=== PATIENT | male | born 1960 | race African-American/Black ===

== ENCOUNTER → 2018-04-02 | Outpatient (CLI) | payer BC | END | disposition home or self-care (01) | LOC: KCIC MRI 07:49 | DX: S43.492A Other sprain of left shoulder joint, initial encounter (principal); X58.XXXA Exposure to other specified factors, initial encounter; Y93.89 Activity, other specified; Y92.89 Other specified places as the place of occurrence of the external cause; Y99.8 Other external cause status | CPT/HCPCS: 73221 ==

== ENCOUNTER 2019-05-26 03:16 | Emergency (ER) | payer BC ==
[~2019-05-26] VITALS: Ht 170.2 cm; Wt 89.4 kg
[~2019-05-26 03:16] MED LIST: ASPI325T8 PO; ATORVASTATIN CA80 MG PO; HYDR-2765 PO; LISI-338 PO; METF500T25 PO; METO25TA4 PO; NITR0.4T SL; OMEG300C PO
--- NOTE | 2019-05-26 05:34 | PHYS DOC ---
Past Medical History Past Medical History: Diabetes-Type II, High Cholesterol, Heart Disease, Hypertension, Other Additional Past Medical Histor: Chronic back pain, Colon tumor (YONATHAN MCCARTNEY DO) Past Surgical History: Coronary Bypass Surgery, Other Additional Past Surgical Histo: Back, bypass, colon ressection, achellis tendon (YONATHAN MCCARTNEY DO) Smoking: Quit Greater Than 1 Year Alcohol Use: Heavy Drug Use: Marijuana (YONATHAN MCCARTNEY DO) Adult General Chief Complaint Chief Complaint: ABDOMINAL PAIN HPI HPI Mr. Wilson is a pleasant 58yo AAM w/ PMH significant for colon tumor and resection, HTN, HLD, and DM presents with LLQ pain. The pain has been present for over a month but recently increased in severity "over the last couple of days" and is sharp, intermittent, non-radiating, and rated 8-9/10. Movement makes it worse. Last colonoscopy was performed July 2018 w/ no concerns. Denies: diarrhea, constipation, or hematochezia. (YONATHAN MCCARTNEY DO) Review of Systems Review of Systems Constitutional: Denies fever or chills Eyes: Denies redness or eye pain HENT: Denies nasal congestion or sore throat Respiratory: Denies cough or shortness of breath Cardiovascular: Denies chest pain or palpitations GI: Reports LLQ abdominal pain. Denies nausea, vomiting, diarrhea, constipation, or hematochezia. : Denies dysuria or hematuria Musculoskeletal: Denies back pain or joint pain Neurologic: Denies headache, focal weakness or sensory changes Complete systems were reviewed and found to be within normal limits, except as documented in this note. (YONATHAN MCCARTNEY DO) Current Medications Current Medications Current Medications Medications (Trade) Dose Ordered Sig/Sarah Start Time Stop Time Status Last Admin Dose Admin Fentanyl Citrate (Fentanyl 2ml Vial) 50 mcg 1X ONCE 05/26/19 06:00 05/26/19 06:01 DC 05/26/19 05:38 50 MCG Info (CONTRAST GIVEN -- Rx MONITORING) 1 each PRN DAILY PRN 05/26/19 06:45 05/28/19 06:44 Iohexol (Omnipaque 300 Mg/ml) 75 ml 1X ONCE 05/26/19 07:00 05/26/19 07:01 DC 05/26/19 06:34 75 ML Ondansetron HCl (Zofran) 4 mg 1X ONCE 05/26/19 06:00 05/26/19 06:01 DC 05/26/19 05:38 4 MG Sodium Chloride 1,000 ml @ 1,000 mls/hr 1X ONCE 05/26/19 06:00 05/26/19 06:59 DC 05/26/19 05:38 1,000 MLS/HR (GISELLE SCHMID MD) Allergies Allergies Allergies Coded Allergies Type Severity Reaction Last Updated Verified [place] And Derivatives Allergy Severe FACIAL SWELLING 08/19/15 Yes apple Allergy Severe FACIAL SWELLING 08/19/15 Yes banana Allergy Severe FACIAL SWELLING 08/19/15 Yes grapefruit Allergy Severe FACIAL SWELLING 08/19/15 Yes orange Allergy Severe FACIAL SWELLING 08/19/15 Yes pineapple Allergy Severe FACIAL SWELLING 08/19/15 Yes shellfish derived Allergy Severe Hives 05/20/14 Yes (GISELLE SCHMID MD) Physical Exam Physical Exam Constitutional: pleasant, conversational, obese, well developed, well nourished, no acute distress, non-toxic appearance HENT: Normocephalic, atraumatic, oropharynx moist Eyes: PERRL, EOMI, conjunctiva normal, no discharge Neck: Normal range of motion, no tenderness, supple, no cervical or supracla vicular LAD Cardiovascular: Heart rate normal, regular rhythm w/o gallops, rubs, or murmurs Lungs & Thorax: Bilateral breath sounds clear to auscultation, no wheezing Abdomen: Soft, LLQ tender to palpation, non-distended, normoactive BS x4 quadrants Skin: Warm, dry, no erythema, no rash Back: No tenderness, no CVA tenderness Extremities: No tenderness, ROM intact, no edema Neurologic: Alert and oriented X 3, normal motor function, normal sensory f unction, no focal deficits noted Psychologic: Affect normal, judgement normal, mood normal (YONATHAN MCCARTNEY DO) Current Patient Data Vital Signs Vital Signs Date Time Temp Pulse Resp B/P (MAP) Pulse Ox O2 Delivery O2 Flow Rate FiO2 05/26/19 05:38 95 Room Air 05/26/19 04:40 97.7 65 18 142/74 (96) 97.7 (GISELLE SCHMID MD) Lab Values Laboratory Tests Test 05/26/19 05:15 05/26/19 06:45 White Blood Count 4.4 x10^3/uL (4.0-11.0) Red Blood Count 4.66 x10^6/uL (4.30-5.70) Hemoglobin 14.1 g/dL (13.0-17.5) Hematocrit 42.3 % (39.0-53.0) Mean Corpuscular Volume 91 fL (79-100) Mean Corpuscular Hemoglobin 30 pg (25-35) Mean Corpuscular Hemoglobin Concent 33 g/dL (31-37) Red Cell Distribution Width 14.5 % (11.5-14.5) Platelet Count 257 x10^3/uL (140-400) Neutrophils (%) (Auto) 46 % (31-73) Lymphocytes (%) (Auto) 37 % (24-48) Monocytes (%) (Auto) 14 % (0-9) H Eosinophils (%) (Auto) 2 % (0-3) Basophils (%) (Auto) 1 % (0-3) Neutrophils # (Auto) 2.0 x10^3/uL (1.8-7.7) Lymphocytes # (Auto) 1.6 x10^3/uL (1.0-4.8) Monocytes # (Auto) 0.6 x10^3/uL (0.0-1.1) Eosinophils # (Auto) 0.1 x10^3/uL (0.0-0.7) Basophils # (Auto) 0.0 x10^3/uL (0.0-0.2) Prothrombin Time 12.6 SEC (11.7-14.0) Prothrombin Time INR 1.0 (0.8-1.1) Activated Partial Thromboplast Time 30 SEC (24-38) Sodium Level 140 mmol/L (136-145) Potassium Level 4.5 mmol/L (3.5-5.1) Chloride Level 103 mmol/L (98-107) Carbon Dioxide Level 27 mmol/L (21-32) Anion Gap 10 (6-14) Blood Urea Nitrogen 17 mg/dL (8-26) Creatinine 0.9 mg/dL (0.7-1.3) Estimated GFR (Cockcroft-Gault) 104.2 BUN/Creatinine Ratio 19 (6-20) Glucose Level 93 mg/dL (70-99) Lactic Acid Level 1.1 mmol/L (0.4-2.0) Calcium Level 9.6 mg/dL (8.5-10.1) Total Bilirubin 1.0 mg/dL (0.2-1.0) Aspartate Amino Transferase (AST) 36 U/L (15-37) Alanine Aminotransferase (ALT) 33 U/L (16-63) Alkaline Phosphatase 75 U/L (46-116) Creatine Kinase 439 U/L (39-308) H Creatine Kinase MB (Mass) 3.0 ng/mL (0.0-3.6) Creatine Kinase MB Relative Index 0.7 % (0-4) Troponin I Quantitative < 0.017 ng/mL (0.000-0.055) Total Protein 8.3 g/dL (6.4-8.2) H Albumin 4.2 g/dL (3.4-5.0) Albumin/Globulin Ratio 1.0 (1.0-1.7) Lipase 133 U/L (73-393) Urine Collection Type Void Urine Color Yellow Urine Clarity Clear Urine pH 6.0 Urine Specific Wirtz 1.020 Urine Protein Negative mg/dL (NEG-TRACE) Urine Glucose (UA) Negative mg/dL (NEG) Urine Ketones (Stick) Negative mg/dL (NEG) Urine Blood Negative (NEG) Urine Nitrite Negative (NEG) Urine Bilirubin Negative (NEG) Urine Urobilinogen Dipstick 1.0 mg/dL (0.2 mg/dL) Urine Leukocyte Esterase Negative (NEG) Urine RBC Rare /HPF (0-2) Urine WBC Occ /HPF (0-4) Urine Squamous Epithelial Cells Occ /LPF Urine Bacteria 0 /HPF (0-FEW) Urine Mucus Slight /LPF Laboratory Tests 05/26/19 05:15 Laboratory Tests 05/26/19 05:15 (GISELLE SCHMID MD) Lab Values Laboratory Tests Test 05/26/19 05:15 White Blood Count 4.4 x10^3/uL (4.0-11.0) Red Blood Count 4.66 x10^6/uL (4.30-5.70) Hemoglobin 14.1 g/dL (13.0-17.5) Hematocrit 42.3 % (39.0-53.0) Mean Corpuscular Volume 91 fL (79-100) Mean Corpuscular Hemoglobin 30 pg (25-35) Mean Corpuscular Hemoglobin Concent 33 g/dL (31-37) Red Cell Distribution Width 14.5 % (11.5-14.5) Platelet Count 257 x10^3/uL (140-400) Neutrophils (%) (Auto) 46 % (31-73) Lymphocytes (%) (Auto) 37 % (24-48) Monocytes (%) (Auto) 14 % (0-9) H Eosinophils (%) (Auto) 2 % (0-3) Basophils (%) (Auto) 1 % (0-3) Neutrophils # (Auto) 2.0 x10^3/uL (1.8-7.7) Lymphocytes # (Auto) 1.6 x10^3/uL (1.0-4.8) Monocytes # (Auto) 0.6 x10^3/uL (0.0-1.1) Eosinophils # (Auto) 0.1 x10^3/uL (0.0-0.7) Basophils # (Auto) 0.0 x10^3/uL (0.0-0.2) Prothrombin Time 12.6 SEC (11.7-14.0) Prothrombin Time INR 1.0 (0.8-1.1) Activated Partial Thromboplast Time 30 SEC (24-38) Sodium Level 140 mmol/L (136-145) Potassium Level 4.5 mmol/L (3.5-5.1) Chloride Level 103 mmol/L (98-107) Carbon Dioxide Level 27 mmol/L (21-32) Anion Gap 10 (6-14) Blood Urea Nitrogen 17 mg/dL (8-26) Creatinine 0.9 mg/dL (0.7-1.3) Estimated GFR (Cockcroft-Gault) 104.2 BUN/Creatinine Ratio 19 (6-20) Glucose Level 93 mg/dL (70-99) Lactic Acid Level 1.1 mmol/L (0.4-2.0) Calcium Level 9.6 mg/dL (8.5-10.1) Total Bilirubin 1.0 mg/dL (0.2-1.0) Aspartate Amino Transferase (AST) 36 U/L (15-37) Alanine Aminotransferase (ALT) 33 U/L (16-63) Alkaline Phosphatase 75 U/L (46-116) Creatine Kinase 439 U/L (39-308) H Creatine Kinase MB (Mass) 3.0 ng/mL (0.0-3.6) Creatine Kinase MB Relative Index 0.7 % (0-4) Troponin I Quantitative < 0.017 ng/mL (0.000-0.055) Total Protein 8.3 g/dL (6.4-8.2) H Albumin 4.2 g/dL (3.4-5.0) Albumin/Globulin Ratio 1.0 (1.0-1.7) Lipase 133 U/L (73-393) Laboratory Tests 05/26/19 05:15 Laboratory Tests 05/26/19 05:15 (YONATHAN MCCARTNEY DO) EKG EKG EKG obtained @ 05:44 and read @ 05:47. No ST-elevation noted.[] (YONATHAN MCCARTNEY DO) Radiology/Procedures Radiology/Procedures [] (YONATHAN MCCARTNEY DO) Course & Med Decision Making Course & Med Decision Making Patient presented with LLQ pain. CT abdomen pending. Labs pending. Fentanyl and Zofran administered. Sign-out provided to Dr. Schmid for final evaluation and disposition. Discussed current findings and plan with patient and family, who acknowledge understanding and agreement. [] (YONATHAN MCCARTNEY DO) Course & Med Decision Making 58-year-old male presenting to the emergency department today with left lower quadrant abdominal pain. Patient was seen and evaluated prior to my examination and initial plan had already been set forth. Patient received a CT abdomen pelvis along with an EKG and blood work. Patient was signed out to me at 6 AM with plans to follow-up on imaging and blood work and to discharge if unremarkable. Patient's CT shows no acute abnormalities. CBC unremarkable. Chemistry panel shows an elevated CK which is a very nonspecific test. CK-MB is within normal limits and troponin is negative. Patient's lactic acid is within normal limits. Coags normal. Urinalysis normal. EKG was initially reviewed by Dr. Mccartney. I also looked at the EKG which shows sinus rhythm with a regular rate. ST segments are congruent. Nonspecific T-wave inversions. Not suggestive of acute coronary syndrome. Patient's pain is not in his chest. His pain is in his lower abdomen. On evaluation the patient at approximate 7:30 the patient is feeling better. He is comfortable and is not in distress. His abdomen is soft and nontender. I discussed his results including the enlarged lymph nodes seen on CAT scan. He will need to follow-up with his doctor for this. Otherwise I will give him a few pain medications to take at home if he needs that he is to return if his pain worsens or if he is concerned for any reason. He will need to follow-up with his doctor in 1-2 days for repeat abdominal exam. [id number] discharge instructions and return precautions given. (GISELLE SCHMID MD) Dragon Disclaimer Dragon Disclaimer This electronic medical record was generated, in whole or in part, using a voice recognition dictation system. (YONATHAN MCCARTNEY DO) Departure Departure Impression: Primary Impression: Abdominal pain Disposition: HOME, SELF-CARE Condition: STABLE Referrals: KAYLA FOY (PCP) Patient Instructions: Abdominal Pain (Nonspecific) Additional Instructions: Thank you for allowing us to participate in your care today. Return to the emergency department you have any new or worsening symptoms, or if you are concerned for any reason. Return to emergency department if you have any new or concerning symptoms including but not limited to fever, chills, nausea, vomiting, intractable pain, any new rashes, chest pain, shortness of air, uncontrolled bleeding, difficulty breathing, and/or vision loss. Follow up with your primary care physician within 1-2 days. Call your Primary Doctor tomorrow and inform them of your visit today. If you do not have a primary care provider we are happy to provide you with a list of our primary care providers contact information. This condition should be evaluated by your primary care physician and any recommended consulting services for continued management within 2 days after discharge. If at any time, you are having difficulty getting into your primary care doctor or a specialist, return to the emergency department. Scripts Hydrocodone Bit/Acetaminophen (HYDROCODONE-APAP 5-325 ) 1 Tab Tablet 1 TAB PO PRN Q8HRS PRN for sev, #8 TAB 0 Refills Prov: GISELLE SCHMID MD 05/26/19 Problem Qualifiers Primary Impression: Abdominal pain Abdominal location: left lower quadrant Qualified Codes: R10.32 - Left lower quadrant pain YONATHAN MCCARTNEY DO May 26, 2019 05:34 GISELLE SCHMID MD May 26, 2019 07:38
[2019-05-26 05:37] LABS: BASO % 1 % (0-3); EOS # 0.1 x10^3/uL (0.0-0.7); EOS % 2 % (0-3); HEMATOCRIT 42.3 % (39.0-53.0); HEMOGLOBIN 14.1 g/dL (13.0-17.5); LYMPH # 1.6 x10^3/uL (1.0-4.8); LYMPH % 37 % (24-48); MEAN CORPUSCULAR HEMOGLOBIN 30 pg (25-35); MEAN CORPUSCULAR HGB CONC 33 g/dL (31-37); MEAN CORPUSCULAR VOLUME 91 fL (79-100); MONO # 0.6 x10^3/uL (0.0-1.1); MONO % 14 % (0-9); NEUT % 46 % (31-73); PLATELET COUNT 257 x10^3/uL (140-400); RED BLOOD COUNT 4.66 x10^6/uL (4.30-5.70); RED CELL DISTRIBUTION WIDTH 14.5 % (11.5-14.5); WHITE BLOOD COUNT 4.4 x10^3/uL (4.0-11.0)
[2019-05-26 05:50] LABS: CALCIUM 9.6 mg/dL (8.5-10.1); CREATININE 0.9 mg/dL (0.7-1.3); GFR 104.2; POTASSIUM 4.5 mmol/L (3.5-5.1)
[2019-05-26 05:51] LABS: PROTHROMBIN TIME PATIENT 12.6 SEC (11.7-14.0)
[2019-05-26 05:56] LABS: ALBUMIN 4.2 g/dL (3.4-5.0); TOTAL PROTEIN 8.3 g/dL (6.4-8.2)
[2019-05-26] MEDS ORDERED: IV NORMAL SALINE 1000ML BAG 1,000 ML IV ONE (06:00)
[2019-05-26] MEDS ORDERED: ONDANSETRON PF 4 MG/2 ML VIAL. IV ONE (06:00)
[2019-05-26] MEDS ORDERED: fentaNYL PF VIAL 100 MCG/2 ML VIAL IV ONE (06:00)
--- NOTE | 2019-05-26 06:26 | EKG ---
[facility] [address] [place] [address] Test Date: 2019-05-26 Test Time: 05:44:32 Pat Name: MANNY RAYMUNDO Department: Room: Gender: M Consulting Systems Engineer: : 1960 Requested By: YONATHAN MCCARTNEY Order Number: [id number] Reading MD: Measurements Intervals [place] Rate: 60 P: 41 KS: 210 QRS: 52 QRSD: 96 T: 76 QT: 420 QTc: 424 Interpretive Statements SINUS RHYTHM NON SPECIFIC ST-T ABNORMALITY (ELEVATION) OTHERWISE NORMAL ECG No previous ECG available for comparison
[2019-05-26] MEDS ORDERED: CONTRAST GIVEN. MC PRN (06:45)
[2019-05-26 06:59] LABS: BILIRUBIN,URINE NEGATIVE (NEG); CLARITY,URINE CLEAR; COLOR,URINE YELLOW; NITRITE,URINE NEGATIVE (NEG); PROTEIN,URINE NEGATIVE (NEG-TRACE)
[2019-05-26] MEDS ORDERED: IOHEXOL 300 MG/ML 100ML VIAL. IV ONE (07:00)
--- NOTE | 2019-05-26 07:02 | RAD ---
INDICATION: Left lower quadrant pain with history of colonic resection COMPARISON: None. TECHNIQUE: Axial CT images obtained through the abdomen and pelvis with contrast. One or more of the following individualized dose reduction techniques were utilized for this examination: 1. Automated exposure control; 2. Adjustment of the mA and/or kV according to patient size; 3. Use of iterative reconstruction technique. FINDINGS: Partial visualization of coronary artery calcific atherosclerosis. Moderate to severe calcific atherosclerosis. Fat-containing inguinal hernias. Liver appears mildly low density. Nonspecific but mild fatty infiltration can have this appearance. No peripancreatic fluid collection. Adjacent to the liver and pancreas there is an enlarged lymph node measuring approximately 19 x 16 mm. Spleen is not enlarged. Urinary bladder is somewhat distended at time of exam. No hydronephrosis. Right renal cystic lesion. Degenerative changes the spine with multilevel central canal and neural foraminal stenosis. Colonic diverticulosis. No evidence of periappendiceal inflammation. No dilated loops of bowel to suggest obstruction. Degenerative changes the bilateral hips. Multilevel central canal and neural foraminal stenosis. Multiple disc protrusions. IMPRESSION: 1. No evidence of bowel obstruction or appendicitis. 2. Colonic diverticulosis. 3. Calcific atherosclerosis. 4. Enlarged lymph node in the upper abdomen adjacent to the pancreas and liver. Electronically signed by: Tommy Vega MD (05/26/2019 6:59 AM) [id number]
[2019-05-26 07:05] LABS: BACTERIA,URINE 0 /HPF (0-FEW); RBC,URINE RARE /HPF (0-2); SQUAMOUS EPITHELIAL CELL,UR OCC /LPF; WBC,URINE OCC /HPF (0-4)
[2019-05-26] MEDS ORDERED: HYDR-2761 PO (07:38)
[2019-05-26 07:50] VITALS: BP 128/81
== END 2019-05-26 08:11 | disposition home or self-care (01) ==
LOC: ER 03:16
DX: R10.32 Left lower quadrant pain (principal); I10 Essential (primary) hypertension; E78.5 Hyperlipidemia, unspecified; E11.9 Type 2 diabetes mellitus without complications; E78.00 Pure hypercholesterolemia, unspecified; I11.9 Hypertensive heart disease without heart failure; G89.29 Other chronic pain; M54.89 Other dorsalgia; F10.20 Alcohol dependence, uncomplicated; Z95.1 Presence of aortocoronary bypass graft; Z87.891 Personal history of nicotine dependence; Z91.013 Allergy to seafood; Z91.018 Allergy to other foods; Y90.9 Presence of alcohol in blood, level not specified
CPT/HCPCS: 36415; 74177; 80053; 81001; 82553; 83605; 83690; 84484; 85025; 85610; 85730; 93005; 96374; 96375; 99285; J2405; J3010; J7030; Q9967

== ENCOUNTER → 2019-06-24 | Outpatient (CLI) | payer BC ==
[2019-05-26 07:50] VITALS: BP 128/81
[~2019-06-24] MED LIST changes: +GADOTERATE 7.5 MMOL/15ML VIAL. IVP ONE; +HYDR-2761 PO
--- NOTE | 2019-06-24 12:47 | KCIC ---
BRAIN WO/W CONTRAST History: Seizures. Technique: Multiplanar, multi sequential pre and postcontrast MR imaging was performed of the brain. Contrast: 15 mL Dotarem. Comparison: December 12, 2012 Findings: No acute infarct. No intracranial hemorrhage. No mass effect. No hydrocephalus. Extra-axial spaces are unremarkable. No pathologic enhancement. Symmetric bilateral hippocampal formations. No abnormal signal or volume loss. Chronic right caudate body lacunar infarct. Imaged orbits are unremarkable. Right maxillary sinus mucosal retention cyst or polyp. Minimal scattered paranasal sinus mucosal thickening. Mastoid air cells are clear. Impression: 1. No acute intracranial abnormality. 2. Chronic right caudate lacunar infarct. Electronically signed by: Daniel Olsen DO (06/24/2019 12:44 PM) [facility]
--- NOTE | 2019-06-24 18:03 | KCIC ---
Bilateral 3 view knee HISTORY: Bilateral chronic knee pain, left greater than right. Right knee No evidence of an acute fracture. No bone destruction. Joint compartments are maintained. Vascular calcification is identified. Left knee: Minimal narrowing of the medial joint compartment. No acute fracture or aggressive bone destruction. Vascular calcification is seen. Surgical clips are identified. IMPRESSION: No acute radiographic findings. Electronically signed by: Franko Newman MD (06/24/2019 6:00 PM) [facility]
== END | disposition home or self-care (01) ==
LOC: KCIC MRI 10:44
PROVIDERS: ATTEND Psychiatry & Neurology Neurology with Special Qualifications in Child Neurology
DX: I63.81 Other cerebral infarction due to occlusion or stenosis of small artery (principal); R56.9 Unspecified convulsions; M25.562 Pain in left knee; M25.561 Pain in right knee
CPT/HCPCS: 70553; 73562; A9575

== ENCOUNTER → 2019-07-02 | Outpatient (CLI) | payer BC ==
[~2019-07-02] MED LIST changes: -GADOTERATE 7.5 MMOL/15ML VIAL. IVP ONE; -NITR0.4T SL; +NITR0.4T24 SL
--- NOTE | 2019-07-02 17:28 | EEG ---
DATE OF SERVICE: 07/02/2019 OBJECTIVE: The patient is a 58-year-old male with new seizure. DESCRIPTION: This is a digital study. Electrodes are placed according to international 10-20 system. Bipolar and referential montages are available. Activation procedures typically include hyperventilation and intermittent photic stimulation. INTERPRETATION: The waking background consists of 9-10 Hz, 50-100 microvolt activity, symmetrically distributed over parietooccipital regions and reactive to eye opening. Hyperventilation and intermittent photic stimulation are noncontributory. Stage 2 sleep is achieved with normal electroencephalogram patterns. All computer-identified abnormalities are reviewed and none are actually abnormal. IMPRESSION: This electroencephalogram with the patient awake and asleep is within normal limits. There is no focal, paroxysmal, or epileptiform activity. Thank you for letting us help with the patient's care. MONROE SHARMA MD DR: PABLO/jenifer JOB#: [id number] / [id number]
== END | disposition home or self-care (01) ==
LOC: RT 10:10
PROVIDERS: ATTEND Psychiatry & Neurology Neurology with Special Qualifications in Child Neurology
DX: R56.9 Unspecified convulsions (principal)
CPT/HCPCS: 95816

== ENCOUNTER → 2019-10-07 | Outpatient (CLI) | payer BC ==
--- NOTE | 2019-10-07 09:33 | RAD ---
EXAM: Abdomen sonogram. HISTORY: Cholelithiasis. Pain. TECHNIQUE: Sonographic imaging of the abdomen was performed. COMPARISON: 05/26/2019. FINDINGS: The liver is normal in size. No focal hepatic lesion is seen. The common bile duct is normal in caliber. The gallbladder is unremarkable. The kidneys are normal in size. Left kidney is partially obscured. There is a 2.2 cm right renal cyst with suspected internal septation. The pancreas, spleen and inferior vena cava are partially obscured. There is aortic atherosclerosis. IMPRESSION: 1. Sonographically unremarkable gallbladder. Specifically, no cholelithiasis or cholecystitis is seen. 2. 2.2 cm complex right renal cyst with internal septation. Sonographic follow-up can be performed to confirm stability. Electronically signed by: Liliana Watts MD (10/07/2019 9:30 AM) [facility]
== END | disposition home or self-care (01) ==
LOC: US 06:28
PROVIDERS: ATTEND Family Medicine
DX: N28.1 Cyst of kidney, acquired (principal); K80.20 Calculus of gallbladder without cholecystitis without obstruction; I70.0 Atherosclerosis of aorta
CPT/HCPCS: 76700

== ENCOUNTER → 2019-12-10 | Outpatient (CLI) | payer BC ==
--- NOTE | 2019-12-12 08:20 | KCIC ---
EXAM: Lumbar spine MRI without contrast. HISTORY: Radiculopathy. TECHNIQUE: Multiplanar, multisequence magnetic resonance imaging of the lumbar spine was performed without contrast. COMPARISON: None. FINDINGS: There is minimal S-shaped lumbar scoliosis. There is minimal grade 1 anterolisthesis of L5 on S1. There is degenerative endplate remodeling with disc space narrowing and disc desiccation at L3-L4 and L4-L5. There are postoperative changes at these levels, described in detail below. There are few osseous hemangiomas. There is no suspicious osseous lesion. There is no fracture. There is a small simple cyst within the lower pole of the right kidney. The conus terminates at L1. At L1-L2, there is no stenosis. At L2-L3, there is a disc bulge and endplate remodeling. There is no stenosis. At L3-L4, there is a broad-based posterior central disc protrusion with minimal superior and inferior extrusion. There are also broad-based left greater than right foraminal to extra foraminal disc protrusions superimposed on a disc bulge and endplate remodeling. There is mild bilateral facet arthropathy. There are partial laminectomy changes. There is moderate left greater than right foraminal stenosis with abutment of the exiting L3 nerve roots. There is moderate central canal stenosis. At L4-L5, there is extruded disc material or scar/granulation tissue along the inferior left paracentral and lateral recess disc margins measuring approximately 9 mm inferior to the disc space and 6 mm transversely and 4 mm anteroposteriorly. This is superimposed on a broad-based left paracentral to extra foraminal disc protrusion and osteophyte complex and diffuse disc bulge and endplate remodeling. There are partial laminectomy changes. There is mild bilateral foraminal stenosis with abutment of the exiting L4 nerve roots. There is effacement of the left lateral recess and deviation of the traversing left L5 nerve root with mild central canal stenosis. At L5-S1, there is mild bilateral facet arthropathy. There is mild central canal stenosis. IMPRESSION: 1. L4-L5: Suspected left paracentral to left lateral recess inferior disc extrusion or scar/granulation tissue superimposed on a broad-based disc protrusion and osteophyte complex, contributing to effacement of the left lateral recess and deviation of the traversing left L5 nerve root and mild central canal stenosis. There is also mild bilateral foraminal stenosis with abutment of the exiting L4 nerve roots at this level. There are partial laminectomy changes at this level. 2. L3-L4: Degenerative changes resulting in moderate left greater than right foraminal stenosis and abutment the exiting L3 nerve roots and moderate central canal stenosis. There are partial laminectomy changes at this level. 3. Degenerative change at the remainder of the lumbar levels, described in detail above. Electronically signed by: Liliana Watts MD (12/12/2019 8:17 AM) [id number]
== END | disposition home or self-care (01) ==
LOC: KCIC MRI 15:00
PROVIDERS: ATTEND Orthopaedic Surgery
DX: M47.26 Other spondylosis with radiculopathy, lumbar region (principal); M51.16 Intervertebral disc disorders with radiculopathy, lumbar region; M48.07 Spinal stenosis, lumbosacral region; M12.88 Other specific arthropathies, not elsewhere classified, other specified site; M41.86 Other forms of scoliosis, lumbar region; D18.09 Hemangioma of other sites; N28.1 Cyst of kidney, acquired
CPT/HCPCS: 72148

== ENCOUNTER → 2019-12-30 | Outpatient (CLI) | payer BC ==
[~2019-12-30] MED LIST changes: +CONTRAST GIVEN. MC PRN; +IOHEXOL 240 MG/ML 50ML VIAL. PO ONE; +IOHEXOL 300 MG/ML 100ML VIAL. IV ONE
[2019-12-30 08:34] LABS: CREATININE 0.9 mg/dL (0.7-1.3); GFR 103.8
--- NOTE | 2019-12-30 14:09 | RAD ---
CT scan of the abdomen and pelvis with contrast 12/30/2019 CLINICAL HISTORY: History of abdominal lymphadenopathy. TECHNIQUE: After the oral and intravenous administration of contrast, contiguous, 5 mm axial sections were obtained through the abdomen and pelvis. 75 cc of Omnipaque 300 were administered intravenously during this examination. One or more of the following individualized dose reduction techniques were utilized for this study: 1. Automated exposure control. 2. Adjustment of the mA and/or kV according to patient size. 3. Use of iterative reconstruction technique. FINDINGS: Comparison study is dated 05/26/2019. Images through the lung bases demonstrate minimal dependent subsegmental atelectasis bilaterally. A 1.7 cm bulla/bleb is seen within the left lower lobe, unchanged. A 4 mm calcified granuloma is seen within the right lower lobe, unchanged. The liver parenchyma has a decreased attenuation consistent with fatty infiltration. The spleen, pancreas, adrenal glands and left kidney are within normal limits. A 2.7 cm rounded low-attenuation lesion is seen involving the lower pole of the right kidney. This likely represents a cyst. It has not significantly changed. No further imaging workup is recommended. Atherosclerotic calcification of the abdominal aorta and its branches is noted. The abdominal aorta tapers normally. The gallbladder slightly contracted. No free fluid or free air is within the abdomen. There is no evidence of bowel obstruction. The appendix is well-visualized and is within normal limits. An 1.9 cm lymph node is seen between the liver and pancreas which is unchanged from the previous examination. No retroperitoneal lymphadenopathy is seen. Images through the pelvis demonstrate the urinary bladder distended with urine. Calcifications are seen within the pelvis consistent with phleboliths. No free fluid is seen. No pelvic or inguinal lymphadenopathy is seen. Very mild S-shaped curvature of the cervical spine is seen. Degenerative changes are seen involving lower thoracic and mid and lower lumbar spine along with both hips. IMPRESSION: Stable CT appearance of the 1.9 cm lymph node between the liver and pancreas. No acute abnormality is seen. Electronically signed by: Louie Read MD (12/30/2019 2:06 PM) [facility] [place]
== END | disposition home or self-care (01) ==
LOC: CT 08:04
PROVIDERS: ATTEND Family Medicine
DX: N28.89 Other specified disorders of kidney and ureter (principal); I70.0 Atherosclerosis of aorta; J98.11 Atelectasis
CPT/HCPCS: 36415; 74177; 82565; 84520; Q9966; Q9967

== ENCOUNTER → 2020-01-20 | Outpatient (CLI) | payer BC ==
[~2020-01-20] MED LIST changes: -CONTRAST GIVEN. MC PRN; +DULO30CA2 PO; +GABA300C18 PO; +IOHEXOL 180 MG/ML 10 ML VIAL. ONE; -IOHEXOL 240 MG/ML 50ML VIAL. PO ONE; -IOHEXOL 300 MG/ML 100ML VIAL. IV ONE; +LOSA1TAB19 PO; +RANI-376 PO; +TAMS0.4C97 PO; +methylPREDNISolone ACETATE 40 MG/ML VIAL. ONE; +methylPREDNISolone ACETATE 80 MG/ML VIAL. ONE
--- NOTE | 2020-01-20 11:21 | PAIN ---
DATE OF SERVICE: 01/20/2020 INITIAL CONSULTATION FOR PAIN CLINIC CHIEF COMPLAINT: Low back and left greater than right lower extremity pain. HISTORY OF PRESENT ILLNESS: This is a 59-year-old male who presents with history of pain for about a year, increasing in the low back and the left greater than right lower extremity. The patient reports he did have a lumbar diskectomy about 2012, which helped the back pain in his right leg, which is more painful at that time, significantly improved; however, the pain has returned now over the past year without any specific injury or action he is aware of, gradually increasing, worse with walking, standing, changing positions, better with sitting or lying down, but awakens him sleep about 2-3 times a night. The patient reports the pain does not affect his bowel or bladder control, but does affect his ability to walk. He is not using any assistive devices, however. The patient continues to work. He is on his feet most of his working day. He describes the pain as sharp and stabbing and throbbing in the low back, shooting in the right and left lower extremity, mostly on the left anterior lateral thigh, anterior medial thigh, medial lower leg, anterior chaudhry and the calf as well. The patient reports there is tingling and burning all the way into the foot, especially the middle toes. The patient has had physical therapy in 10/2019 which helped slightly to get him more flexible with his lower extremity. He has not tried any medication for this currently. The patient rates his disability rating from 0-10, 10 being the worst, is a 10 with family and home responsibilities, recreation, social activity, 8 with occupation and sexual behavior, 9 with self-care and 7 with life support activities. The patient did have an MRI scan of the lumbar spine which was performed on 12/10/2019 showing L4-L5 suspected left paracentral to left lateral recess inferior disk extrusion scar granulation tissue, superimposed on broad-based disk protrusion osteophyte complex effacing the left lateral recess with deviation of the traversing left L5 nerve root, mild central canal stenosis, also mild bilateral foraminal stenosis with abutment of the exiting L4 nerve roots at this level. L3-L4 shows moderate left greater than right foraminal stenosis and abutment of the exiting L3 nerve root and moderate central canal stenosis. The patient reports no loss of motor function in the lower extremities, but significant fatigability with the left leg with walking and standing. PAST MEDICAL HISTORY: Significant for type 2 diabetes, hypertension, coronary artery disease, cigarette smoking, quit 13 years ago, benign colon tumor, history of arthritis and seizures. PREVIOUS SURGERY: Includes colon resection, lumbar surgery with diskectomy in 2013, coronary artery bypass grafting about 11 years ago, right Achilles tendon repair. CURRENT MEDICATIONS: Include tamsulosin, Cymbalta, Zantac, gabapentin, losartan, metformin, metoprolol, daily baby aspirin, fish oil, atorvastatin and nitroglycerin p.r.n. ALLERGIES: THE PATIENT IS ALLERGIC TO FRESH SHELLFISH. No known drug allergies. FAMILY HISTORY: Significant for no major medical problems or conditions that he is aware of. SOCIAL HISTORY: The patient does not smoke, quit many years ago, drinks alcohol about 3-4 every 4 days or so alcoholic drinks. The patient reports he does use marijuana usually daily, is and lives with his spouse, has 2 children living at home, lives locally in [place], [place]. Works at a local [employer] business. REVIEW OF SYSTEMS: The patient's review of systems is positive for those items mentioned in history of present illness. All systems reviewed and otherwise negative. It is complete, full and well documented on the patient's chart. PHYSICAL EXAMINATION: VITAL SIGNS: The patient's blood pressure is 147/71, pulse 88, respirations 16, temperature 98.1 degrees Fahrenheit, height is 5 feet 7 inches and weight is 205 pounds. GENERAL: The patient is awake, alert, oriented, appropriate, very pleasant demeanor. HEENT: Head shows normocephalic, atraumatic. Extraocular movements are intact and symmetrical. Oral cavity: Mucous membranes moist and pink. Dentition is intact. NECK: Shows anterior throat supple without palpable lymphadenopathy noted. Swallow reflex symmetrical. CHEST: Shows normal on inspection. Breath sounds are clear bilaterally. HEART: Shows S1, S2 clear. No murmurs auscultated. ABDOMEN: Soft, nontender, nondistended. No palpable organomegaly is noted. No rebound or guarding demonstrated. BACK: Shows spine grossly in the midline, normal appearing thoracic kyphosis and minor flattening of lumbar lordotic curvature. Well-healed surgical scar in the midline noted. Lumbar paraspinous muscle shows symmetrical on inspection, with palpation shows some moderate tenderness diffusely, but only diffusely in the middle and lower distribution of paraspinous muscles bilaterally, but they are symmetrical without evidence of atrophy, hypertrophy, no asymmetry, no trigger points, no radiation of pain, no tenderness over the spinous processes, sacrum or sacroiliac regions. EXTREMITIES: The patient's lower extremities show deep tendon reflexes 2+ in the patellar, 1+ tendo-calcaneus tendons. Motor exam is strong with 5/5 dorsiflexion, extension, quadriceps and hamstring flexion symmetrical. Peripheral pulses are 1+ posterior tibia. No peripheral edema is noted. Lower extremities are warm and dry to touch, equal in color and appearance. The patient's straight leg raise noted to be positive on the left at about 40 degrees leg raise, decreased with knee flexion, right side is negative. The patient's Gaenslen's and Eric's maneuvers are negative bilaterally. The patient is able to stand, stand on his toes without significant difficulty or loss of balance, walks with a slight shuffling gait, does appear to favor the left lower extremity slightly again, not using any assistive devices to ambulate. SKIN: Shows warm and dry, good turgor. No edema. No sores, rashes or bruising throughout. IMPRESSION: 1. This is a 59-year-old male with approximate 1-year history of increasing pain, low back, left greater than right lower extremity in a radicular fashion. 2. MRI scan of lumbar spine as noted. 3. Type 2 diabetes. 4. Hypertension. 5. Arthritis. PLAN: Options were discussed with the patient including conservative medical managements, physical therapies and interventional techniques. He would like to pursue interventional techniques. We discussed a lumbar epidural steroid injection using description as well as anatomical models to describe the procedure. Risks were then discussed including, but not limited to bleeding, infection, possibility of epidural hematoma, subsequent neurological compromise, dural puncture, headaches, spinal cord and/or nerve damage, side effects of steroid medication and poor results regarding pain control. The patient understands and wished to proceed. The patient will return to clinic in approximately 2 weeks for followup, was counseled on return appointment, activity level and side effects to be aware of. DIAGNOSES: Lumbar radiculopathy with lumbar degenerative disk disease, lumbar spinal stenosis and post-lumbar laminectomy syndrome. PROCEDURE: Lumbar epidural steroid injection, translaminar approach at L4-L5 level using C-arm fluoroscopic guidance under sterile prep and drape using local anesthetic. MEDICATION INJECTED: A total of 120 mg Depo-Medrol plus 10 mL of preservative-free normal saline and 2 mL of contrast. CONDITION AT DISCHARGE: Stable. The patient tolerated procedure well, had no complications. NAE SNOW MD DR: RENA/jenifer JOB#: [id number] / [id number] KAYLA Soares
== END | disposition home or self-care (01) ==
LOC: PNCL 08:23
PROVIDERS: ATTEND Anesthesiology
DX: M51.16 Intervertebral disc disorders with radiculopathy, lumbar region (principal); M48.061 Spinal stenosis, lumbar region without neurogenic claudication; M96.1 Postlaminectomy syndrome, not elsewhere classified; I10 Essential (primary) hypertension; E11.9 Type 2 diabetes mellitus without complications; M19.90 Unspecified osteoarthritis, unspecified site; F17.210 Nicotine dependence, cigarettes, uncomplicated; I25.10 Atherosclerotic heart disease of native coronary artery without angina pectoris; Z91.018 Allergy to other foods; Z91.013 Allergy to seafood; Z95.1 Presence of aortocoronary bypass graft; Z98.890 Other specified postprocedural states; Z79.899 Other long term (current) drug therapy; Z79.82 Long term (current) use of aspirin; Z79.84 Long term (current) use of oral hypoglycemic drugs
CPT/HCPCS: 62323; J1030; J1040; Q9965

== ENCOUNTER 2020-04-16 07:21 | Emergency (ER) | payer BC ==
[~2020-04-16] VITALS: Ht 170.2 cm; Wt 87.7 kg
[~2020-04-16 07:21] MED LIST changes: -IOHEXOL 180 MG/ML 10 ML VIAL. ONE; -methylPREDNISolone ACETATE 40 MG/ML VIAL. ONE; -methylPREDNISolone ACETATE 80 MG/ML VIAL. ONE
[2020-04-16 07:41] VITALS: BP 144/80
[2020-04-16] MEDS ORDERED: LIDOCAINE 1% Multi-Dose 20 ML VIAL. ONE (07:45)
[2020-04-16] MEDS ORDERED: DIPH,PERTUSS(ACELL),TET VAC/PF 0.5 ML SYRINGE. VAX IM ONE (08:45)
[2020-04-16] MEDS ORDERED: CEPH-264 PO (09:53)
--- NOTE | 2020-04-16 09:54 | PHYS DOC ---
Past Medical History Past Medical History: Diabetes-Type II, High Cholesterol, Heart Disease, Hypertension, Other Additional Past Medical Histor: Chronic back pain, Colon tumor Past Surgical History: Coronary Bypass Surgery, Other Additional Past Surgical Histo: Back, bypass, colon ressection, achellis tendon Smoking Status: Never Smoker Alcohol Use: Heavy Drug Use: Marijuana General Adult EDM: Chief Complaint: LACERATION/AVULSION HPI: HPI: Patient is a 59 year old male presenting to the ED with a chief complaint of laceration to his left thumb. Patient states that he was sharpening knives and accidentally cut his left thumb. Patient does not know when his last tetanus shot was given. Patient denies any other injuries. Review of Systems: Review of Systems: Constitutional: Denies fever or chills. [] Eyes: Denies change in visual acuity. [] HENT: Denies nasal congestion or sore throat. [] Respiratory: Denies cough or shortness of breath. [] Cardiovascular: Denies chest pain or edema. [] Musculoskeletal: Complains of laceration to his left thumb Heart Score: Risk Factors: Risk Factors: DM, Current or recent (<one month) smoker, HTN, HLP, family history of CAD, obesity. Risk Scores: Score 0 - 3: 2.5% MACE over next 6 weeks - Discharge Home Score 4 - 6: 20.3% MACE over next 6 weeks - Admit for Clinical Observation Score 7 - 10: 72.7% MACE over next 6 weeks - Early Invasive Strategies Current Medications: Current Medications Medications (Trade) Dose Ordered Sig/Sarah Start Time Stop Time Status Last Admin Dose Admin Diphtheria/ Tetanus/Acell Pertussis (ADACEL TDap SYRINGE) 0.5 ml ONCE ONCE 04/16/20 08:45 04/16/20 08:46 DC 04/16/20 08:47 0.5 ML Lidocaine HCl (Lidocaine 1% 20ml Vial) 20 ml STK-MED ONCE 04/16/20 07:45 04/16/20 07:45 DC Allergies: Allergies: Allergies Coded Allergies Type Severity Reaction Last Updated Verified [place] And Derivatives Allergy Severe FACIAL SWELLING 08/19/15 Yes apple Allergy Severe FACIAL SWELLING 08/19/15 Yes banana Allergy Severe FACIAL SWELLING 08/19/15 Yes grapefruit Allergy Severe FACIAL SWELLING 08/19/15 Yes orange Allergy Severe FACIAL SWELLING 08/19/15 Yes pineapple Allergy Severe FACIAL SWELLING 08/19/15 Yes shellfish derived Allergy Severe Hives 05/20/14 Yes Physical Exam: PE: Constitutional: Well developed, well nourished, no acute distress, non-toxic appearance. [] HENT: Normocephalic, atraumatic Eyes: EOMI Neck: Normal range of motion, Supple Respiratory: No respiratory distress Extremities: Flap on the left thumb from the base of the left thumb to the DIP it is 6 cm total length Neurologic: Alert and oriented X 3 Current Patient Data: Vital Signs: Vital Signs Date Time Temp Pulse Resp B/P (MAP) Pulse Ox O2 Delivery O2 Flow Rate FiO2 04/16/20 07:41 97.8 80 18 144/80 (101) 98 Room Air 97.8 EKG: EKG: [] Radiology/Procedures: Radiology/Procedures: [] Course & Med Decision Making: Course & Med Decision Making Tetanus updated in the ER. Wound cleaned out with 2050 cc fluids 8 cc of lidocaine 1% injected as anesthetic Flap on the left thumb. Complicated repair. Used 4-0 Ethilon sutures to close wound Wound approximated well Used regular sterile procedures Interrupted sutures used Patient tolerated procedure without any complications Instructed patient that sutures need to be removed in 7 to 10 days Discussed plan of care with patient. Patient is instructed to follow up with PCP in one to 2 days. Appropriate discharge instructions given to patient to return to the ED or to seek immediate medical evaluation. Patient is instructed to return to the ED if symptoms worsen or if any concerns. Dragon Disclaimer: Dragon Disclaimer: This electronic medical record was generated, in whole or in part, using a voice recognition dictation system. Departure Departure Impression: Primary Impression: Thumb laceration Disposition: 01 HOME, SELF-CARE Condition: IMPROVED Referrals: KAYLA FOY (PCP) Patient Instructions: Fingertip Laceration, Laceration Care, Adult Additional Instructions: Discussed plan of care with patient. Patient is instructed to follow up with PCP in one to 2 days. Appropriate discharge instructions given to patient to return to the ED or to seek immediate medical evaluation. Patient is instructed to return to the ED if symptoms worsen or if any concerns. Scripts Cephalexin (KEFLEX) 500 Mg Capsule 1 CAP PO TID for 7 Days, #21 CAP 0 Refills Prov: JODEE VASQUEZ DO 04/16/20 Justicifation of Admission Dx: Justifications for Admission: Justification of Admission Dx: JODEE Coleman DO Apr 16, 2020 09:53
== END 2020-04-16 10:18 | disposition home or self-care (01) ==
LOC: ER 07:21
DX: S61.012A Laceration without foreign body of left thumb without damage to nail, initial encounter (principal); E11.9 Type 2 diabetes mellitus without complications; E78.00 Pure hypercholesterolemia, unspecified; I11.9 Hypertensive heart disease without heart failure; G89.29 Other chronic pain; F12.90 Cannabis use, unspecified, uncomplicated; F10.10 Alcohol abuse, uncomplicated; Z98.890 Other specified postprocedural states; Z91.018 Allergy to other foods; Z91.013 Allergy to seafood; W26.8XXA Contact with other sharp object(s), not elsewhere classified, initial encounter; Y93.89 Activity, other specified; Y92.89 Other specified places as the place of occurrence of the external cause; Y99.8 Other external cause status
CPT/HCPCS: 12002; 90471; 90715; 99283

== ENCOUNTER 2020-04-26 09:24 | Emergency (ER) | payer BC ==
[~2020-04-26] VITALS: Ht 170.2 cm; Wt 193.0 kg
[~2020-04-26 09:24] MED LIST changes: +CEPH-264 PO
[2020-04-26] MEDS ORDERED: IV NORMAL SALINE 1000ML BAG 1,000 ML IV ONE (10:00)
[2020-04-26 10:07] LABS: CALCIUM 8.4 mg/dL (8.5-10.1); CREATININE 1.8 mg/dL (0.7-1.3); GFR 46.6; POTASSIUM 3.3 mmol/L (3.5-5.1)
[2020-04-26 10:18] LABS: BASO % 1 % (0-3); EOS # 0.2 x10^3/uL (0.0-0.7); EOS % 4 % (0-3); HEMATOCRIT 37.3 % (39.0-53.0); HEMOGLOBIN 12.7 g/dL (13.0-17.5); LYMPH # 2.2 x10^3/uL (1.0-4.8); LYMPH % 35 % (24-48); MEAN CORPUSCULAR HEMOGLOBIN 31 pg (25-35); MEAN CORPUSCULAR HGB CONC 34 g/dL (31-37); MEAN CORPUSCULAR VOLUME 90 fL (79-100); MONO # 1.1 x10^3/uL (0.0-1.1); MONO % 17 % (0-9); NEUT # 2.8 x10^3/uL (1.8-7.7); NEUT % 43 % (31-73); PLATELET COUNT 261 x10^3/uL (140-400); RED BLOOD COUNT 4.14 x10^6/uL (4.30-5.70); RED CELL DISTRIBUTION WIDTH 14.1 % (11.5-14.5); WHITE BLOOD COUNT 6.4 x10^3/uL (4.0-11.0)
--- NOTE | 2020-04-26 10:20 | RAD ---
PORTABLE CHEST 1V History: Reason: dizzy / Spl. Instructions: / History: Comparison: December 19, 2008 and September 03, 2016. Findings: No consolidation or pleural effusion. Normal heart size. No pneumothorax. Prior median sternotomy with fractured upper mediastinal wire, unchanged compared to 2016. Calcified right basilar pulmonary nodule, likely prior granulomatous disease. Impression: 1. No acute cardiopulmonary process. Electronically signed by: Daniel Olsen DO (04/26/2020 10:17 AM) [id number]
[2020-04-26 12:31] LABS: BILIRUBIN,URINE NEGATIVE (NEG); CLARITY,URINE CLEAR; COLOR,URINE YELLOW; NITRITE,URINE NEGATIVE (NEG); PH,URINE 5.5 (<5.0-8.0); PROTEIN,URINE NEGATIVE (NEG-TRACE); UROBILINOGEN,URINE 0.2 mg/dL (0.2 mg/dL)
[2020-04-26 12:47] LABS: BACTERIA,URINE 0 /HPF (0-FEW); RBC,URINE 0 /HPF (0-2); SQUAMOUS EPITHELIAL CELL,UR FEW /LPF
[2020-04-26 12:48] LABS: HYALINE CASTS, URINE FEW /HPF; WBC,URINE RARE /HPF (0-4)
--- NOTE | 2020-04-26 13:55 | PHYS DOC ---
Past Medical History Past Medical History: Diabetes-Type II, High Cholesterol, Heart Disease, Hypertension, Sciatica, Other Additional Past Medical Histor: Chronic back pain, Colon tumor Past Surgical History: Coronary Bypass Surgery, Other Additional Past Surgical Histo: Back, bypass, colon ressection, achellis tendon Smoking Status: Never Smoker Alcohol Use: Heavy Drug Use: Marijuana General Adult EDM: Chief Complaint: CHEST PAIN HPI: HPI: Patient is a 59 year old male who presents with chest pain. Patient states that he had transient left-sided chest aching. He took 2 nitros and then had a syncopal episode. He is now feeling sleepy and groggy. He no longer has chest pain. He does not have any dizziness, shortness of breath, URI symptoms. He had low blood pressure upon EMS arrival. They arrived shortly after he took his nitro. He intermittently gets chest pain. 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 Review of Systems: Review of Systems: General: Denies fever, chills, sweats, fatigue Eyes: Denies drainage, blurred vision, eye redness HENT: Denies rhinorrhea, sore throat, earache Respiratory: Denies cough, shortness of breath, wheezing Cardiac: Denies edema, palpitations, chest pain GI: Denies abdominal pain, Nausea, vomiting MSK: Denies back pain, neck pain Skin: Denies rash, jaundice Neuro: Denies headache, dizziness Psychiatric: Denies SI/HI Heart Score: Risk Factors: Risk Factors: DM, Current or recent (<one month) smoker, HTN, HLP, family history of CAD, obesity. Risk Scores: Score 0 - 3: 2.5% MACE over next 6 weeks - Discharge Home Score 4 - 6: 20.3% MACE over next 6 weeks - Admit for Clinical Observation Score 7 - 10: 72.7% MACE over next 6 weeks - Early Invasive Strategies Current Medications: Current Medications Medications (Trade) Dose Ordered Sig/Sarah Start Time Stop Time Status Last Admin Dose Admin Sodium Chloride 1,000 ml @ 40 mls/hr 1X ONCE 04/26/20 10:00 04/27/20 10:59 04/26/20 10:00 40 MLS/HR Allergies: Allergies: Allergies Coded Allergies Type Severity Reaction Last Updated Verified [place] And Derivatives Allergy Severe FACIAL SWELLING 08/19/15 Yes apple Allergy Severe FACIAL SWELLING 08/19/15 Yes banana Allergy Severe FACIAL SWELLING 08/19/15 Yes grapefruit Allergy Severe FACIAL SWELLING 08/19/15 Yes orange Allergy Severe FACIAL SWELLING 08/19/15 Yes pineapple Allergy Severe FACIAL SWELLING 08/19/15 Yes shellfish derived Allergy Severe Hives 05/20/14 Yes Physical Exam: PE: General: Awake, alert, NAD. Well Nourished, well hydrated. Cooperative HEENT: Atraumatic, EOMI, PERRL, airway patent, moist oral mucosa Neck: Supple, trachea midline Respiratory: CTA bilaterally, normal effort, no wheezing/crackles CV: RRR, no murmur, cap refill <2 GI: Soft, nondistended, nontender, no masses MSK: No obvious deformities Skin: Warm, dry, intact Neuro: A&O x3, speech NL, sensory and motor grossly intact, no focal deficits Psych: Normal affect, normal mood, not suicidal or homicidal Current Patient Data: Labs: Laboratory Tests Test 04/26/20 09:40 04/26/20 12:05 04/26/20 13:15 White Blood Count 6.4 x10^3/uL (4.0-11.0) Red Blood Count 4.14 x10^6/uL (4.30-5.70) L Hemoglobin 12.7 g/dL (13.0-17.5) L Hematocrit 37.3 % (39.0-53.0) L Mean Corpuscular Volume 90 fL (79-100) Mean Corpuscular Hemoglobin 31 pg (25-35) Mean Corpuscular Hemoglobin Concent 34 g/dL (31-37) Red Cell Distribution Width 14.1 % (11.5-14.5) Platelet Count 261 x10^3/uL (140-400) Neutrophils (%) (Auto) 43 % (31-73) Lymphocytes (%) (Auto) 35 % (24-48) Monocytes (%) (Auto) 17 % (0-9) H Eosinophils (%) (Auto) 4 % (0-3) H Basophils (%) (Auto) 1 % (0-3) Neutrophils # (Auto) 2.8 x10^3/uL (1.8-7.7) Lymphocytes # (Auto) 2.2 x10^3/uL (1.0-4.8) Monocytes # (Auto) 1.1 x10^3/uL (0.0-1.1) Eosinophils # (Auto) 0.2 x10^3/uL (0.0-0.7) Basophils # (Auto) 0.0 x10^3/uL (0.0-0.2) Sodium Level 135 mmol/L (136-145) L Potassium Level 3.3 mmol/L (3.5-5.1) L Chloride Level 99 mmol/L (98-107) Carbon Dioxide Level 24 mmol/L (21-32) Anion Gap 12 (6-14) Blood Urea Nitrogen 23 mg/dL (8-26) Creatinine 1.8 mg/dL (0.7-1.3) H Estimated GFR (Cockcroft-Gault) 46.6 Glucose Level 93 mg/dL (70-99) Calcium Level 8.4 mg/dL (8.5-10.1) L Troponin I Quantitative < 0.017 ng/mL (0.000-0.055) < 0.017 ng/mL (0.000-0.055) Urine Collection Type Unknown Urine Color Yellow Urine Clarity Clear Urine pH 5.5 (<5.0-8.0) Urine Specific [place] 1.010 (1.000-1.030) Urine Protein Negative mg/dL (NEG-TRACE) Urine Glucose (UA) Negative mg/dL (NEG) Urine Ketones (Stick) Negative mg/dL (NEG) Urine Blood Negative (NEG) Urine Nitrite Negative (NEG) Urine Bilirubin Negative (NEG) Urine Urobilinogen Dipstick 0.2 mg/dL (0.2 mg/dL) Urine Leukocyte Esterase Negative (NEG) Urine RBC 0 /HPF (0-2) Urine WBC Rare /HPF (0-4) Urine Squamous Epithelial Cells Few /LPF Urine Bacteria 0 /HPF (0-FEW) Urine Hyaline Casts Few /HPF Urine Mucus Mod /LPF Laboratory Tests 04/26/20 09:40 Laboratory Tests 04/26/20 09:40 Vital Signs: Vital Signs Date Time Temp Pulse Resp B/P (MAP) Pulse Ox O2 Delivery O2 Flow Rate FiO2 04/26/20 10:50 75 103/61 (75) 96 Room Air 04/26/20 09:35 97.5 16 97.5 EKG: EKG: [] Radiology/Procedures: Radiology/Procedures: [] Course & Med Decision Making: Course & Med Decision Making Pertinent Labs and Imaging studies reviewed. (See chart for details) Patient is a 59-year-old male who presents the emergency room after having a syncopal episode. Patient had chest pain and took nitro for this. Is likely that his syncopal episode was due to taking 2 nitro tablets at once causing him transient hypotension. Patient was hypertensive upon EMS arrival, however this is resolved with fluids. Upon my evaluation patient was feeling completely back to normal and was wanting to go home. Cardiac work-up was negative. Delta troponin was done and is also negative. It is unlikely that his chest pain this morning was cardiac related given his 2- troponins and normal EKG. Stitches were taken out of his finger. He will be discharged home and will follow-up with his primary care physician and cardiology. Patient's test results and vitals while in the ED were fully reviewed and discussed with the patient. Patient is stable and at this time does not need admission to the hospital. We have discussed strict return precautions and the importance of following up with their Primary Care Physician. Patient stated understanding and was given an opportunity to ask any questions. Patient is in agreement with plan. Dragon Disclaimer: Dragon Disclaimer: This electronic medical record was generated, in whole or in part, using a voice recognition dictation system. Departure Departure Impression: Primary Impression: Chest pain Disposition: HOME, SELF-CARE Condition: GOOD Referrals: KAYLA FOY (PCP) Patient Instructions: Chest Pain (Nonspecific) Justicifation of Admission Dx: Justifications for Admission: Justification of Admission Dx: ELIZABETH Metzger MD Apr 26, 2020 13:55
[2020-04-26 14:35] VITALS: BP 141/76
== END 2020-04-26 14:45 | disposition home or self-care (01) ==
LOC: ER 09:24
DX: R07.89 Other chest pain (principal); R55 Syncope and collapse; E11.9 Type 2 diabetes mellitus without complications; E78.00 Pure hypercholesterolemia, unspecified; I11.9 Hypertensive heart disease without heart failure; G89.29 Other chronic pain; F12.90 Cannabis use, unspecified, uncomplicated; F10.10 Alcohol abuse, uncomplicated; Z98.890 Other specified postprocedural states; Z91.018 Allergy to other foods; Z91.013 Allergy to seafood
CPT/HCPCS: 36415; 71045; 80048; 81001; 84484; 85025; 99285; J7030; 96360

== ENCOUNTER 2020-07-15 10:48 | Emergency (ER) | payer BC ==
[~2020-07-15] VITALS: Ht 170.2 cm; Wt 88.0 kg
[2020-07-15] MEDS ORDERED: IBUP-1007 PO (11:28)
--- NOTE | 2020-07-15 11:29 | PHYS DOC ---
Past Medical History Past Medical History: Diabetes-Type II, High Cholesterol, Heart Disease, Hypertension, Sciatica, Other Additional Past Medical Histor: Chronic back pain, Colon tumor Past Surgical History: Coronary Bypass Surgery, Other Additional Past Surgical Histo: Back, bypass, colon ressection, achellis tendon Smoking Status: Never Smoker Alcohol Use: Heavy Drug Use: Marijuana General Adult EDM: Chief Complaint: FOOT INJURY PAIN HPI: HPI: Patient is a 59 year old male who presents with states he wears steel toed boots at work every day and today he was sitting on a work stool and he stepped up off the stool with his right foot. He states he has a sharp shooting pain in the arch and the heel part of his right foot. It is only with movement and flexing of the foot. He has full range of motion of the foot and all joints in the foot including the ankle. No joint laxities. Cap refill is less than 2 seconds. There is no swelling or tenderness. Pedal pulses strong and present. He states that he took BC powder, 2 Tylenols, 2 shots of whiskey, and 2 beers to help with his pain. He he states it still hurts with movement or walking. Melo wynn rates his pain a 10 out of 10 with movement. Patient has a history of high cholesterol, heart disease, sciatica, hypertension, diabetes, and colon tumor with resection, bypass, Achilles tendon. Patient denies numbness or tingling, coolness of the extremity, skin color change, swelling, focal weakness. Review of Systems: Review of Systems: Constitutional: Denies fever or chills. [] Eyes: Denies change in visual acuity. [] HENT: Denies nasal congestion or sore throat. [] Respiratory: Denies cough or shortness of breath. [] Cardiovascular: Denies chest pain or edema. [] GI: Denies abdominal pain, nausea, vomiting, bloody stools or diarrhea. [] : Denies dysuria. [] Musculoskeletal: Denies back pain or joint pain. Right foot arch and heel pain [] Integument: Denies rash. [] Neurologic: Denies headache, focal weakness or sensory changes. [] Endocrine: Denies polyuria or polydipsia. [] Lymphatic: Denies swollen glands. [] Psychiatric: Denies depression or anxiety. [] Heart Score: Risk Factors: Risk Factors: DM, Current or recent (<one month) smoker, HTN, HLP, family history of CAD, obesity. Risk Scores: Score 0 - 3: 2.5% MACE over next 6 weeks - Discharge Home Score 4 - 6: 20.3% MACE over next 6 weeks - Admit for Clinical Observation Score 7 - 10: 72.7% MACE over next 6 weeks - Early Invasive Strategies Allergies: Allergies: Allergies Coded Allergies Type Severity Reaction Last Updated Verified [place] And Derivatives Allergy Severe FACIAL SWELLING 08/19/15 Yes apple Allergy Severe FACIAL SWELLING 08/19/15 Yes banana Allergy Severe FACIAL SWELLING 08/19/15 Yes grapefruit Allergy Severe FACIAL SWELLING 08/19/15 Yes orange Allergy Severe FACIAL SWELLING 08/19/15 Yes pineapple Allergy Severe FACIAL SWELLING 08/19/15 Yes shellfish derived Allergy Severe Hives 05/20/14 Yes Physical Exam: PE: Constitutional: Well developed, well nourished, no acute distress, non-toxic a ppearance. [] HENT: Normocephalic, atraumatic, bilateral external ears normal, oropharynx moist, no oral exudates, nose normal. [] Eyes: PERRLA, EOMI, conjunctiva normal, no discharge. [] Neck: Normal range of motion, no tenderness, supple, no stridor. [] Cardiovascular:Heart rate regular rhythm, no murmur [] Lungs & Thorax: Bilateral breath sounds clear to auscultation [] Abdomen: Bowel sounds normal, soft, no tenderness, no masses, no pulsatile masses. [] Skin: Warm, dry, no erythema, no rash. [] Back: No tenderness, no CVA tenderness. [] Extremities: No tenderness, no cyanosis, no clubbing, right foot flexure ROM intact limited due to pain, no edema. [] Neurologic: Alert and oriented X 3, normal motor function, normal sensory function, no focal deficits noted. [] Psychologic: Affect normal, judgement normal, mood normal. [] Current Patient Data: Vital Signs: Vital Signs Date Time Temp Pulse Resp B/P (MAP) Pulse Ox O2 Delivery O2 Flow Rate FiO2 07/15/20 11:00 98.4 72 15 104/55 (71) 98 Room Air 98.4 EKG: EKG: [] Radiology/Procedures: Radiology/Procedures: [] Impression: [facility] [address] [place] [address] IMAGING REPORT Signed PATIENT: MANNY RAYMUNDOCOUNT: [id number] : 1960 LOCATION: ER AGE: 59 SEX: M EXAM STATUS: REG ER ORD. PHYSICIAN: JOHN TYLER APRN REASON: right medial foot pain after missing step PROCEDURE: FOOT RIGHT 3V Right foot 3 views 07/15/2020. Reason for exam: Pain after injury. No fracture or dislocation is seen. Joint spaces appear fairly well maintained. There is no apparent foreign body. IMPRESSION: No acute abnormality. Electronically signed by: Yoav Mohr Jr., MD (07/15/2020 11:34 AM) [id number] DICTATED and SIGNED BY: YOAV MOHR Jr, MD DATE: 07/15/20 1134 Course & Med Decision Making: Course & Med Decision Making Pertinent Labs and Imaging studies reviewed. (See chart for details) See HPI. Patient is ambulatory but limping on the right foot. Alert and oriented x4. Speaks in full complete sentences. Patient denies any injury. Skin pink warm and dry. Since the patient is intoxicated with alcohol I am not giving him any narcotics for pain at this time. Patient will get a referral to orthopedics or he can follow-up with his primary care. I told him that he needs to buy some shoe inserts that are more supportive and cushioned for his work boots as he is on his feet almost every day for long periods of time. Patient placed in walking boot. [] Dragon Disclaimer: Dragon Disclaimer: This electronic medical record was generated, in whole or in part, using a voice recognition dictation system. Departure Departure Impression: Primary Impression: Foot pain, right Disposition: 01 HOME, SELF-CARE Condition: STABLE Referrals: VAZQUEZ NOLASCO MD (PCP) JEREMY RUVALCABA MD Patient Instructions: Plantar Fasciitis, Plantar Fasciitis (Heel Spur Syndrome) with [facility] Additional Instructions: Buy shoe inserts for your work boots and any shoe that you have that you are at home. Try to stay off your feet if you can and rest. Use ice and ibuprofen to help. Use the walking boot we have given you. You can follow-up with orthopedics or your primary care physician. Scripts Ibuprofen (IBUPROFEN) 600 Mg Tablet 600 MG PO PRN Q6HRS PRN for INFLAMMATION, #20 TAB Prov: JOHN TYLER APRN 07/15/20 Justicifation of Admission Dx: Justifications for Admission: Justification of Admission Dx: N/A JOHN TYLER APRN Jul 15, 2020 11:29
--- NOTE | 2020-07-15 11:37 | RAD ---
Right foot 3 views 07/15/2020. Reason for exam: Pain after injury. No fracture or dislocation is seen. Joint spaces appear fairly well maintained. There is no apparent foreign body. IMPRESSION: No acute abnormality. Electronically signed by: Robinson Mohr Jr., MD (07/15/2020 11:34 AM) [id number]
== END 2020-07-15 11:50 | disposition home or self-care (01) ==
LOC: ER 10:48
DX: M79.671 Pain in right foot (principal); E11.9 Type 2 diabetes mellitus without complications; E78.00 Pure hypercholesterolemia, unspecified; I11.9 Hypertensive heart disease without heart failure; G89.29 Other chronic pain; F12.90 Cannabis use, unspecified, uncomplicated; F10.10 Alcohol abuse, uncomplicated; Z98.890 Other specified postprocedural states; Z91.013 Allergy to seafood; Z91.018 Allergy to other foods
CPT/HCPCS: 73630; 99283

== ENCOUNTER 2020-10-27 17:24 | Emergency (ER) | payer BC ==
[~2020-10-27] VITALS: Ht 170.2 cm; Wt 94.6 kg
[~2020-10-27 17:24] MED LIST changes: +IBUP-1007 PO; -LISI-338 PO; +LISI-517 PO
[2020-10-27 19:05] LABS: BASO # 0.1 x10^3/uL (0.0-0.2); BASO % 1 % (0-3); EOS # 0.1 x10^3/uL (0.0-0.7); EOS % 2 % (0-3); HEMATOCRIT 41.3 % (39.0-53.0); HEMOGLOBIN 13.6 g/dL (13.0-17.5); LYMPH # 1.7 x10^3/uL (1.0-4.8); LYMPH % 29 % (24-48); MEAN CORPUSCULAR HEMOGLOBIN 30 pg (25-35); MEAN CORPUSCULAR HGB CONC 33 g/dL (31-37); MEAN CORPUSCULAR VOLUME 90 fL (79-100); MONO # 0.7 x10^3/uL (0.0-1.1); MONO % 12 % (0-9); NEUT # 3.4 x10^3/uL (1.8-7.7); NEUT % 56 % (31-73); PLATELET COUNT 255 x10^3/uL (140-400); RED BLOOD COUNT 4.59 x10^6/uL (4.30-5.70); RED CELL DISTRIBUTION WIDTH 14.3 % (11.5-14.5)
[2020-10-27 19:23] LABS: CALCIUM 9.2 mg/dL (8.5-10.1); CREATININE 0.9 mg/dL (0.7-1.3); GFR 103.8
[2020-10-27] MEDS ORDERED: MORPHINE SULFATE 10 MG/ML VIAL. IV ONE (19:30)
[2020-10-27] MEDS ORDERED: KETOROLAC 30 MG/ML VIAL. IVP ONE (19:30)
[2020-10-27] MEDS ORDERED: GABAPENTIN 300 MG CAPSULE. PO ONE (19:30)
[2020-10-27] MEDS ORDERED: LIDOCAINE (700MG/PATCH) PATCH. TD SCH (19:30)
--- NOTE | 2020-10-27 19:49 | RAD ---
EXAMINATION: XR CHEST 1V, XR SHOULDER_RIGHT 2+ VIEWS CLINICAL HISTORY: Chest and right arm pain TECHNIQUE: XR CHEST 1V, XR SHOULDER_RIGHT 2+ VIEWS COMPARISON: Chest radiograph 04/26/2020 FINDINGS: CHEST: Median sternotomy wires and paramediastinal surgical clips. Normal heart size. Aortic atherosc lerotic calcification. No evidence of focal airspace consolidation or pleural effusion. Pulmonary vas culature unremarkable. Degenerative changes of the thoracic spine. RIGHT SHOULDER: Glenohumeral joint alignment maintained. Mild hypertrophic acromioclavicular degenera tive changes. No acute fracture. Chronic reactive changes in the greater tuberosity. Rotator cuff carrie cific tendinosis. Acromiohumeral interval maintained. IMPRESSION: No evidence of acute cardiopulmonary abnormality. Mild right hypertrophic acromioclavicular degenerative changes. Rotator cuff calcific tendinosis. Electronically signed by: Jaydon Omalley DO (10/27/2020 7:35 PM) JOSEPH
--- NOTE | 2020-10-27 19:50 | ED.ADGEN ---
Past Medical History Past Medical History: Diabetes-Type II, High Cholesterol, Heart Disease, Hypertension, Sciatica, Other Additional Past Medical Histor: Chronic back pain, Colon tumor Past Surgical History: Coronary Bypass Surgery, Other Additional Past Surgical Histo: Back, bypass, colon ressection, achellis tendon Smoking Status: Never Smoker Alcohol Use: Heavy Drug Use: Marijuana General Adult EDM: Chief Complaint: UPPER EXTREMITY PAIN HPI: HPI: Patient 59-year-old male presents to the emergency room complaining of severe right arm pain. 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 He denies any trauma. He states he does this work every day. Pain starts in his shoulder and radiates into his elbow and down into his hand. He has previously been told he has carpal tunnel. He is also been told that he has a mass in his neck but has not had any follow-up for this. He describes the pain as throbbing. He is try to take BC, Tylenol, Soma, hydrocodone for it without any relief. Patient states he has difficulty moving his shoulder. Review of Systems: Review of Systems: General: Denies fever, chills, sweats, fatigue Eyes: Denies drainage, blurred vision, eye redness HENT: Denies rhinorrhea, sore throat, earache Respiratory: Denies cough, shortness of breath, wheezing Cardiac: Denies edema, palpitations, chest pain GI: Denies abdominal pain, Nausea, vomiting MSK: Denies back pain, neck pain Skin: Denies rash, jaundice Neuro: Denies headache, dizziness Psychiatric: Denies SI/HI Current Medications: Current Medications Medications (Trade) Dose Ordered Sig/Sarah Start Time Stop Time Status Last Admin Dose Admin Dexamethasone Sodium Phosphate (Decadron) 10 mg 1X ONCE 10/27/20 21:00 10/27/20 21:01 DC Gabapentin (Neurontin) 300 mg 1X ONCE 10/27/20 19:30 10/27/20 19:31 DC 10/27/20 20:02 300 MG Ketorolac Tromethamine (Toradol 30mg Vial) 30 mg 1X ONCE 10/27/20 19:30 10/27/20 19:31 DC 10/27/20 20:00 30 MG Lidocaine (Lidoderm) 1 patch DAILY 10/27/20 19:30 10/27/20 20:03 1 PATCH Morphine Sulfate (Morphine Sulfate) 5 mg 1X ONCE 10/27/20 19:30 10/27/20 19:31 DC 10/27/20 20:02 5 MG Allergies: Allergies: Allergies Coded Allergies Type Severity Reaction Last Updated Verified [place] And Derivatives Allergy Severe FACIAL SWELLING 08/19/15 Yes apple Allergy Severe FACIAL SWELLING 08/19/15 Yes banana Allergy Severe FACIAL SWELLING 08/19/15 Yes grapefruit Allergy Severe FACIAL SWELLING 08/19/15 Yes orange Allergy Severe FACIAL SWELLING 08/19/15 Yes pineapple Allergy Severe FACIAL SWELLING 08/19/15 Yes shellfish derived Allergy Severe Hives 05/20/14 Yes Physical Exam: PE: General: Awake, alert, mild distress, rocking in bed. Well Nourished, well hydrated. Cooperative HEENT: Atraumatic, EOMI, PERRL, airway patent, moist oral mucosa Neck: Supple, trachea midline Respiratory: CTA bilaterally, normal effort, no wheezing/crackles CV: RRR, no murmur, cap refill <2 GI: Soft, nondistended, nontender, no masses MSK: Right arm: Tenderness to the shoulder, elbow, wrist. Intact range of motion of wrist and elbow. Patient unwilling to try to move shoulder due to se claudy pain. 2+ radial pulses, no erythema or swelling, no joint effusions Skin: Warm, dry, intact Neuro: A&O x3, speech NL, sensory and motor grossly intact, no focal deficits Psych: Normal affect, normal mood, not suicidal or homicidal Current Patient Data: Labs: Laboratory Tests Test 10/27/20 18:55 White Blood Count 6.0 x10^3/uL (4.0-11.0) Red Blood Count 4.59 x10^6/uL (4.30-5.70) Hemoglobin 13.6 g/dL (13.0-17.5) Hematocrit 41.3 % (39.0-53.0) Mean Corpuscular Volume 90 fL (79-100) Mean Corpuscular Hemoglobin 30 pg (25-35) Mean Corpuscular Hemoglobin Concent 33 g/dL (31-37) Red Cell Distribution Width 14.3 % (11.5-14.5) Platelet Count 255 x10^3/uL (140-400) Neutrophils (%) (Auto) 56 % (31-73) Lymphocytes (%) (Auto) 29 % (24-48) Monocytes (%) (Auto) 12 % (0-9) H Eosinophils (%) (Auto) 2 % (0-3) Basophils (%) (Auto) 1 % (0-3) Neutrophils # (Auto) 3.4 x10^3/uL (1.8-7.7) Lymphocytes # (Auto) 1.7 x10^3/uL (1.0-4.8) Monocytes # (Auto) 0.7 x10^3/uL (0.0-1.1) Eosinophils # (Auto) 0.1 x10^3/uL (0.0-0.7) Basophils # (Auto) 0.1 x10^3/uL (0.0-0.2) Sodium Level 139 mmol/L (136-145) Potassium Level 4.0 mmol/L (3.5-5.1) Chloride Level 101 mmol/L (98-107) Carbon Dioxide Level 27 mmol/L (21-32) Anion Gap 11 (6-14) Blood Urea Nitrogen 17 mg/dL (8-26) Creatinine 0.9 mg/dL (0.7-1.3) Estimated GFR (Cockcroft-Gault) 103.8 Glucose Level 105 mg/dL (70-99) H Calcium Level 9.2 mg/dL (8.5-10.1) Troponin I Quantitative < 0.017 ng/mL (0.000-0.055) Laboratory Tests 10/27/20 18:55 Laboratory Tests 10/27/20 18:55 Vital Signs: Vital Signs Date Time Temp Pulse Resp B/P (MAP) Pulse Ox O2 Delivery O2 Flow Rate FiO2 10/27/20 20:02 18 97 Room Air 10/27/20 18:35 98.1 70 148/69 (95) 98.1 EKG: EKG: [] Heart Score: Risk Factors: Risk Factors: DM, Current or recent (<one month) smoker, HTN, HLP, family history of CAD, obesity. Risk Scores: Score 0 - 3: 2.5% MACE over next 6 weeks - Discharge Home Score 4 - 6: 20.3% MACE over next 6 weeks - Admit for Clinical Observation Score 7 - 10: 72.7% MACE over next 6 weeks - Early Invasive Strategies Radiology/Procedures: Radiology/Procedures: [] Course & Med Decision Making: Course & Med Decision Making Pertinent Labs and Imaging studies reviewed. (See chart for details) Patient is 59-year-old male who presents to the emergency room complaining of 2 days of constant shoulder pain. Patient does have a cardiac history and cardiac work-up was ordered. EKG and troponin are negative. Patient does not need a delta troponin as this pain has been constant. This sounds radiculopathy in nature. We will treat him symptomatically. Given his history of possible neck mass we will do a CT to rule out any kind of erosion that could be causing the patient's pain. CT shows multiple bulging disc but no mass with erosion. Patient will be treated with steroids. Patient's test results and vitals while in the ED were fully reviewed and discussed with the patient. Patient is stable and at this time does not need admission to the hospital. We have discussed strict return precautions and the importance of following up with their Primary Care Physician. Patient stated understanding and was given an opportunity to ask any questions. Patient is in agreement with plan. Dragon Disclaimer: Dragon Disclaimer: This electronic medical record was generated, in whole or in part, using a voice recognition dictation system. Departure Departure Impression: Primary Impression: Right arm pain Additional Impression: Radiculopathy Disposition: 01 DC HOME SELF CARE/HOMELESS Condition: STABLE Referrals: VAZQUEZ NOLASCO MD (PCP) MIA MONTEZ MD Patient Instructions: Radicular Pain Scripts Methocarbamol (ROBAXIN-750) 750 Mg Tablet 1 TAB PO TID PRN for MUSCLE SPASMS for 10 Days, #30 TAB 0 Refills Prov: ELIZABETH HOLLOWAY MD 10/27/20 Methylprednisolone (MEDROL) 4 Mg Tab.ds.pk 1 PKG PO UD for inflammation, #1 PKG Prov: ELIZABETH HOLLOWAY MD 10/27/20 Problem Qualifiers ELIZABETH HOLLOWAY MD Oct 27, 2020 19:50
[2020-10-27 20:45] VITALS: BP 118/70
--- NOTE | 2020-10-27 20:45 | RAD ---
CT C-Spine without contrast: Clinical History: Pain history neck mass left-sided neck swelling Technique: Axial helical images of the cervical spine were obtained without contrast, axial coronal and sagittal reconstruction was performed. Findings: There is no loss of vertebral body stature. There is no prevertebral soft tissue swelling. The vert ebral bodies are well aligned. The C1-C2 relationship is normal. The visualized osseous structures a ppear normal. Evaluation of the central canal is limited without contrast. There is discogenic disease. Diffuse cervical disc bulges and hypertrophy of the facets result in fla ttening of the thecal sac at multiple levels. There are does not appear to be gross flattening the co rd. There is moderate narrowing multiple neuroforamen. Impression: No acute findings. Clinical correlation suggested. PQRS Compliance Statement: One or more of the following individualized dose reduction techniques were utilized for this examinat ion: 1. Automated exposure control 2. Adjustment of the mA and/or kV according to patient size 3. Use of iterative reconstruction technique Electronically signed by: Juan Mccall III, MD (10/27/2020 8:41 PM) [facility]
[2020-10-27] MEDS ORDERED: DEXAMETHASONE SOD PHOS 4 MG/ML VIAL IVP ONE (21:00)
[2020-10-27] MEDS ORDERED: METH4TAB2 PO (21:05)
[2020-10-27] MEDS ORDERED: METH-38 PO (21:05)
--- NOTE | 2020-10-29 11:45 | EKG ---
[facility] [address] [place] [address] Test Date: 2020-10-27 Test Time: 18:26:25 Pat Name: MANNY RAYMUNDO Department: Room: Gender: M [employer]: : 1960 Requested By: ELIZABETH HOLLOWAY Order Number: [id number] Reading MD: Measurements Intervals [place] Rate: 62 P: 47 [place]: 218 QRS: 47 QRSD: 88 T: 59 QT: 390 QTc: 398 Interpretive Statements SINUS RHYTHM OTHERWISE NORMAL ECG RI6.02 No previous ECG available for comparison
== END 2020-10-27 21:29 | disposition home or self-care (01) ==
LOC: ER 17:24
DX: M25.511 Pain in right shoulder (principal); M54.10 Radiculopathy, site unspecified; E11.9 Type 2 diabetes mellitus without complications; E78.00 Pure hypercholesterolemia, unspecified; I11.9 Hypertensive heart disease without heart failure; G89.29 Other chronic pain; F12.90 Cannabis use, unspecified, uncomplicated; F10.10 Alcohol abuse, uncomplicated; Z98.890 Other specified postprocedural states; Z91.013 Allergy to seafood; Z91.018 Allergy to other foods
CPT/HCPCS: 36415; 71045; 72125; 73030; 80048; 84484; 85025; 93005; 96374; 96375; 99285; J1885; J2270

== ENCOUNTER → 2021-01-02 | Outpatient (CLI) | payer BC ==
[~2021-01-02] MED LIST changes: +METH-38 PO; +METH4TAB2 PO
--- NOTE | 2021-01-02 12:06 | RAD ---
US HEAD/NECK SOFT TISSUE History:Reason: L SIDE NECK MASS / Spl. Instructions: / History: Comparison: CT cervical spine October 2020 Technique: Sonographic examination of the left neck subcutaneous tissues Findings: Slightly hyperechoic ill-defined mass within the left supraclavicular subcutaneous fat measures 7.7 x 4.2 x 3.6 cm. Palpable mass posterior left upper neck corresponds with small hypoechoic lymph node m easures 0.7 x 0.4 cm, potentially similar compared to prior CT. Small fatty hilum. Impression: 1. Small rounded lymph node within the left posterior upper neck corresponding with patient's palpab le abnormality. Recommend continued clinical follow-up and ultrasound follow-up if interval growth. 2. Slightly hyperechoic ill-defined mass within the left supraclavicular subcutaneous fat, most like ly lipoma. Recommend clinical follow-up. Electronically signed by: Daniel Olsen DO (01/02/2021 12:03 PM) [id number]
== END ==
LOC: US 07:07
PROVIDERS: ATTEND Surgery
DX: R22.1 Localized swelling, mass and lump, neck (principal)
CPT/HCPCS: 76536

== ENCOUNTER 2021-02-04 07:26 | Emergency (ER) | payer BC ==
[~2021-02-04] VITALS: Ht 170.2 cm; Wt 90.9 kg
[2021-02-04] MEDS ORDERED: KETOROLAC 60 MG/2 ML VIAL. IM ONE (08:00)
[2021-02-04] MEDS ORDERED: MORPHINE SULFATE 4 MG/ML VIAL. IM ONE (08:00)
[2021-02-04] MEDS ORDERED: methylPREDNISolone SOD SUCC PF 125 MG/2 ML VIAL. IM ONE (08:00)
--- NOTE | 2021-02-04 08:03 | PHYS DOC ---
Past Medical History Past Medical History: Diabetes-Type II, High Cholesterol, Heart Disease, Hypertension, Sciatica, Other Additional Past Medical Histor: Chronic back pain, Colon tumor Past Surgical History: Coronary Bypass Surgery, Other Additional Past Surgical Histo: Back, bypass, colon ressection, achellis tendon Smoking Status: Never Smoker Alcohol Use: Heavy Additional Information: BEER DAILY Drug Use: Marijuana General Adult EDM: Chief Complaint: LOWER BACK PAIN OR INJURY HPI: HPI: Patient is a 60 year old male who presented to ER due to low back pain that radiated to his left buttock and left knee area. Patient has a history of low back problem, has sciatica. Patient feels like there is a sciatic nerve acting up again. Patient denies any bowel or bladder incontinence. Patient denies any recent injury to his back. Patient did have injury of his back long time ago from a fall at work, had some operation done in his low back as well. Patient denies any fever, no nausea vomiting, no abdominal pain, no weakness in his lower extremity. The pain is worse whenever he sit on his buttock or walking. Review of Systems: Review of Systems: Constitutional: Denies fever or chills. [] Eyes: Denies change in visual acuity. [] HENT: Denies nasal congestion or sore throat. [] Respiratory: Denies cough or shortness of breath. [] Cardiovascular: Denies chest pain or edema. [] GI: Denies abdominal pain, nausea, vomiting, bloody stools or diarrhea. [] : Denies dysuria. [] Musculoskeletal: Positive for low back pain that radiated to her left buttock and left knee area. Integument: Denies rash. [] Neurologic: Denies headache, focal weakness or sensory changes. [] Endocrine: Denies polyuria or polydipsia. [] Lymphatic: Denies swollen glands. [] Psychiatric: Denies depression or anxiety. [] Heart Score: C/O Chest Pain: N/A Risk Factors: Risk Factors: DM, Current or recent (<one month) smoker, HTN, HLP, family history of CAD, obesity. Risk Scores: Score 0 - 3: 2.5% MACE over next 6 weeks - Discharge Home Score 4 - 6: 20.3% MACE over next 6 weeks - Admit for Clinical Observation Score 7 - 10: 72.7% MACE over next 6 weeks - Early Invasive Strategies Current Medications: Current Medications Medications (Trade) Dose Ordered Sig/Sarah Start Time Stop Time Status Last Admin Dose Admin Ketorolac Tromethamine (Toradol Im) 60 mg 1X ONCE 02/04/21 08:00 02/04/21 08:01 Methylprednisolone Sodium Succinate (SOLU-Medrol 125MG VIAL) 125 mg 1X ONCE 02/04/21 08:00 02/04/21 08:01 Morphine Sulfate (Morphine Sulfate) 4 mg 1X ONCE 02/04/21 08:00 02/04/21 08:01 Allergies: Allergies: Allergies Coded Allergies Type Severity Reaction Last Updated Verified Dana And Derivatives Allergy Severe FACIAL SWELLING 08/19/15 Yes apple Allergy Severe FACIAL SWELLING 08/19/15 Yes banana Allergy Severe FACIAL SWELLING 08/19/15 Yes grapefruit Allergy Severe FACIAL SWELLING 08/19/15 Yes orange Allergy Severe FACIAL SWELLING 08/19/15 Yes pineapple Allergy Severe FACIAL SWELLING 08/19/15 Yes shellfish derived Allergy Severe Hives 05/20/14 Yes Physical Exam: PE: Constitutional: Well developed, well nourished, no acute distress, non-toxic appearance. [] HENT: Normocephalic, atraumatic, bilateral external ears normal, oropharynx moist, no oral exudates, nose normal. [] Eyes: PERRLA, EOMI, conjunctiva normal, no discharge. [] Neck: Normal range of motion, no tenderness, supple, no stridor. [] Cardiovascular:Heart rate regular rhythm, no murmur [] Lungs & Thorax: Bilateral breath sounds clear to auscultation [] Abdomen: Bowel sounds normal, soft, no tenderness, no masses, no pulsatile masses. [] Skin: Warm, dry, no erythema, no rash. [] Back: No tenderness, no CVA tenderness. [] Extremities: No tenderness, no cyanosis, no clubbing, ROM intact, no edema. [] Neurologic: Alert and oriented X 3, normal motor function, normal sensory function, no focal deficits noted. [] Psychologic: Affect normal, judgement normal, mood normal. [] Current Patient Data: Vital Signs: Vital Signs Date Time Temp Pulse Resp B/P (MAP) Pulse Ox O2 Delivery O2 Flow Rate FiO2 02/04/21 07:34 97.7 76 22 144/85 (104) 96 Room Air 97.7 EKG: EKG: [] Radiology/Procedures: Radiology/Procedures: [][facility] [address] [place] [address] IMAGING REPORT Signed PATIENT: MANNY RAYMUNDOCOUNT: [id number] : 1960 LOCATION: ER AGE: 60 SEX: M EXAM STATUS: REG ER ORD. PHYSICIAN: RENÉ ROBERTS DO REASON: lower back pain with left leg radiculopathy PROCEDURE: LUMBAR SPINE 2-3V XR LUMBAR SPINE 2-3V History: Reason: lower back pain with left leg radiculopathy / Spl. Instructions: / History: Technique: 3 views lumbar spine. Comparison: None. Findings: Normal vertebral body height and alignment. No fracture. Moderate multilevel degenerative disc changes most prominent L3-L4 and L4-L5. Facet arthropathy. Impression: 1. Moderate multilevel lumbar spondylosis. Electronically signed by: Daniel Olsen DO (02/04/2021 8:21 AM) [facility] DICTATED and SIGNED BY: DANIEL OLSEN DO DATE: 02/04/21 [id number] 0 Course & Med Decision Making: Course & Med Decision Making Pertinent Labs and Imaging studies reviewed. (See chart for details) Patient is a 60-year-old male who presented to ER due to low back pain radiated to the buttock and left knee area consistent with acute sciatica. Patient x-ray show arthritis in his low back. Patient was given pain medication in ER, he feel much better. Patient will be discharged home, he will need to follow-up with his family physician for further evaluation and treatment. Dragon Disclaimer: Bonifacio Disclaimer: This electronic medical record was generated, in whole or in part, using a voice recognition dictation system. Departure Departure Impression: Primary Impression: Acute left-sided back pain with sciatica Disposition: HOME / SELF CARE / HOMELESS Condition: IMPROVED Referrals: VAZQUEZ NOLASCO MD (PCP) PLEASE CALL YOUR DOCTOR FOR FOLLOW UP NEXT WEEK. Patient Instructions: Back Pain, Adult, Sciatica Additional Instructions: Thank you for visiting our Emergency Department. We appreciate you trusting us with your care. If any additional problems come up don't hesitate to return to visit us. Please follow up with your primary care provider so they can plan additional care if needed and know about the problem that you had. If symptoms worsen come back to the Emergency Department. Any concerning symptoms that start such as chest pain, shortness of air, weakness or numbness on one side of the body, running high fevers or any other concerning symptoms return to the ER. Scripts Tramadol Hcl (TRAMADOL HCL) 50 Mg Tablet 50 MG PO Q6HRS PRN for PAIN, #20 TAB 0 Refills Prov: RENÉ ROBERTS DO 02/04/21 Naproxen Sodium (ANAPROX DS) 550 Mg Tablet 1 TAB PO BID PRN for PAIN for 15 Days, #30 TAB 0 Refills Prov: RENÉ ROBERTS DO 02/04/21 RENÉ ROBERTS DO Feb 04, 2021 08:03
--- NOTE | 2021-02-04 08:23 | RAD ---
XR LUMBAR SPINE 2-3V History: Reason: lower back pain with left leg radiculopathy / Spl. Instructions: / History: Technique: 3 views lumbar spine. Comparison: None. Findings: Normal vertebral body height and alignment. No fracture. Moderate multilevel degenerative disc change s most prominent L3-L4 and L4-L5. Facet arthropathy. Impression: 1. Moderate multilevel lumbar spondylosis. Electronically signed by: Daniel Olsen DO (02/04/2021 8:21 AM) [facility]
[2021-02-04] MEDS ORDERED: NAPR-682 PO (09:13)
[2021-02-04] MEDS ORDERED: TRAM50TA PO (09:13)
[2021-02-04 09:30] VITALS: BP 147/70
== END 2021-02-04 09:35 | disposition home or self-care (01) ==
LOC: ER 07:26
DX: M54.42 Lumbago with sciatica, left side (principal); E11.9 Type 2 diabetes mellitus without complications; E78.00 Pure hypercholesterolemia, unspecified; I11.9 Hypertensive heart disease without heart failure; G89.29 Other chronic pain; F12.90 Cannabis use, unspecified, uncomplicated; F10.10 Alcohol abuse, uncomplicated; Z98.890 Other specified postprocedural states; Z91.013 Allergy to seafood; Z91.018 Allergy to other foods
CPT/HCPCS: 72100; 96372; 99284; J1885; J2270; J2930

== ENCOUNTER → 2021-08-24 | Outpatient (CLI) | payer BC ==
[~2021-08-24] MED LIST changes: +IOHEXOL 240 MG/ML 50ML VIAL. PO ONE; +IOHEXOL 300 MG/ML 100ML VIAL. IV ONE; -LISI-517 PO; +LISI5TAB15 PO; +NAPR-682 PO; +TRAM50TA PO
--- NOTE | 2021-08-24 12:55 | KCIC ---
EXAM: CT Abdomen and Pelvis with IV contrast CLINICAL HISTORY: Reason: LLQ ABDOMINAL PAIN / Spl. Instructions: ORAL AND IV OMNI 300 100ML / Histor y: . COMPARISON: 12/30/2019 TECHNIQUE: Helical CT of the abdomen and pelvis was performed following the administration of intrave nous contrast. Oral contrast was administered Axial, coronal and sagittal reformatted images were gen erated. PQRS compliance statement - One or more of the following individualized dose reduction techniques wer e utilized for this study: 1. Automated exposure control 2. Adjustment of the mA and/or kV according to patient size 3. Use of iterative reconstruction technique FINDINGS: Lower Chest: No evidence of acute process in the visualized bilateral lower lobes. Similar bullous/bleb in the lef t lower lobe. 4 mm benign calcified granuloma is seen in the right lower lobe. Minimal right greater than left subsegmental atelectasis. Abdomen and Pelvis: Similar decreased attenuation of the hepatic parenchyma consistent with mild fatty infiltration. No s uspicious hepatic lesions. Mildly decompressed gallbladder is present. No biliary ductal dilation. Th e spleen, adrenals, and pancreas are unremarkable. Similar 2.7 cm low attenuating lesion in the right inferior pole with attenuation that of simple fluid. Kidneys are unremarkable. No hydroureteronephro sis. Stomach is normal. Majority of the small and large bowel are opacified no evidence of obstruction or focal wall thickening. Appendix is normal. Sigmoid diverticulosis without evidence of diverticulitis. No free intra-abdominal air or free fluid. Slight interval decrease in size of the enlarged lymph no de residing between the liver and pancreas currently measuring up to 1.5 cm in short axis. No patholo gically enlarged retroperitoneal adenopathy. Similar aortobiiliac atherosclerotic disease. The urinary bladder is decompressed accentuating the wall thickness. No definite surrounding inflamma tory changes. Similar mildly enlarged prostate gland. No evidence of acute process in the anterior abdominal wall. Small fat-containing inguinal hernias. Bones: Degenerative changes are seen throughout the thoracolumbar spine along with both hips. No acute or reed spicious osseous abnormality. IMPRESSION: 1. No evidence of acute abnormality in the abdomen or pelvis. 2. Mild wall thickening of the bladder, may relate to under distention or cystitis. Recommend correla tion with urinalysis. 3. Colonic diverticulosis. 4. Enlarged lymph node adjacent to the pancreas and liver appears slightly decreased in size, stable since 2018 favoring a benign etiology. Electronically signed by: Abisai Recinos DO (08/24/2021 12:53 PM) [facility]
== END ==
LOC: KCIC CT 07:59
PROVIDERS: ATTEND Internal Medicine
DX: K57.30 Diverticulosis of large intestine without perforation or abscess without bleeding (principal); K40.90 Unilateral inguinal hernia, without obstruction or gangrene, not specified as recurrent; N40.0 Benign prostatic hyperplasia without lower urinary tract symptoms; R59.9 Enlarged lymph nodes, unspecified; J84.10 Pulmonary fibrosis, unspecified; J98.11 Atelectasis; I70.0 Atherosclerosis of aorta; I70.8 Atherosclerosis of other arteries
CPT/HCPCS: 74177; 82565; Q9966; Q9967